=== PATIENT | female | born 1945 | race Caucasian/White ===

== ENCOUNTER → 2016-09-04 | Outpatient (CLI) | payer MEDICARE, BC ==
[~2016-09-04] MED LIST: AMOXICILLIN PO; KLOR-CON PO; MIRALAX255 GM PO; MOBIC PO; PRAVACHOL PO; SYNTHROID PO; VIT B6; VITAMIN D 4001 UDTAB PO; ZESTORETIC 10/11 TAB PO; ZYRTEC PO
--- NOTE | ~2016-09-04 | MY11 ---
[facility] A Service of [facility] RADIOLOGY TEXT RESULTS PATIENT: SAMY DAI LOCATION: [facility] : 41 UNIT #: [id number] AGE: [address]: Sheldon Cormier MD SEX: F ORDER DR: [id number] [facility] [place] [address]. [place], [place] [address] [id number] MR#: [id number] #: [id number] NAME: SAMY DAI : 1945 SEX: F STUDY DATE/TIME: 09/04/2016 12:24 UNIT: [facility] ROOM: STUDY DESCRIPTION: MY Mammogram Screening [facility] [place] Attending Physician: Sheldon Cormier M.D. Referring Physician: Sheldon Cormier M.D. Ordering Physician: Sheldon Cormier M.D. Primary Care Physician: Sheldon Cormier M.D. MEDICAL IMAGING REPORT This report is preliminary unless electronic signature is present EXAM Digital screening mammogram 09/04/2016. [facility] HISTORY 70-year-old woman no risk elevation. Prior cyst aspiration. Multiple skin lesions. Annual screening. COMPARISON STUDIES Comparison mammograms date to 09/10/2010 with most recent 08/16/2015. FINDINGS Digital imaging of each breast was completed utilizing screening protocol. Multiple skin markers are placed. Review includes FDA-approved CAD device. Breast parenchyma is partially fatty replaced and mildly heterogeneous with a scattered nodular pattern in each breast. I see no suspicious mass. There are no interval occurring microcalcifications and no suspicious architectural deformity. IMPRESSION Stable benign mammogram. Annual screening recommended. BIRADS II Patients over the age of 40 are entered into a reminder system with target due date for the next mammogram. A result letter will also be sent to the patient. BIRADS: 2 Benign Finding Dictated by... Ash Nobles M.D. [facility] A Service of [facility] / [facility] RADIOLOGY TEXT RESULTS PATIENT: SAMY DAI LOCATION: [facility] : 41 UNIT #: [id number] AGE: [address]: Sheldon Cormier MD SEX: F ORDER DR: THIS IS AN ELECTRONICALLY VERIFIED REPORT Ash Nobles M.D. at 09/04/2016 3:35 PM Skyler TD: 09/04/2016 15:03 JOB #: [id number] MEDICAL IMAGING REPORT Page 1 of 1 COPY
== END | disposition home or self-care (01) ==
LOC: CWCC 12:09
DX: Z12.31 Encounter for screening mammogram for malignant neoplasm of breast (principal); Z98.890 Other specified postprocedural states
CPT/HCPCS: G0202